=== PATIENT | female | born 1970 | race Caucasian/White ===

== ENCOUNTER 2022-03-26 11:54 | Emergency (ER) | payer MEDICAID, SELFPAY ==
[2022-03-26] VITALS (7 sets, daily range): BP systolic 109–140; BP diastolic 57–75; PULSE 67–80; RESP 16–17; TEMP 36.6; O2SAT 95–99; BMI 51.7
[2022-03-26 12:38] LABS: Chloride 103 mmol/L (98-107); Potassium 3.7 mmoL/L (3.5-5.1); Sodium 140 mmol/L (136-145)
--- NOTE | 2022-03-26 12:39 | CT_ITS ---
FINAL REPORT TECHNIQUE: Thin section axial images were obtained from skull base to vertex without contrast. Coronal reconstruction images were obtained from the axial data. Exam was performed using dose reduction technique. CLINICAL HISTORY: L sided tingling x1 week FINDINGS: There is age-appropriate atrophy. There is no mass effect or midline shift. There is no intracranial hemorrhage. 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 There is no hydrocephalus. Periventricular low density is likely related to changes of chronic small vessel ischemia. The basilar cisterns are preserved. The posterior fossa is without acute abnormality. The soft tissues are without acute abnormality. No acute osseous abnormality is identified. IMPRESSION: No acute intracranial abnormality. Atrophy and changes suggesting chronic small vessel ischemia. Reviewed, Interpreted and Dictated by Alice Zapien MD Transcribed by Maribell Stevens Authenticated and [facility]
[2022-03-26 12:40] LABS: Blood Urea Nitrogen 12 mg/dl (7-17); Creatinine Clearance Estimated 75 mL/min (50-200); Estimated Glomerular Filt Rate 88 ml/min (>60); GFR (African American) 107 ML/MIN (>60)
--- NOTE | 2022-03-26 12:40 | [facility].EDGENADL ---
Discharge Plan Disposition Patient Disposition: Home, Self-Care Condition: Good Chief Complaint: Neuro Symptoms/Deficit Referrals Follow up/Referrals: Debbie Vincent MD [Primary Care Provider] - See instructions Activity Restrictions/Add. Instructions Additional Instructions/Restrictions: Follow-up with your primary care provider, call to make appointment. Clinical Impressions Clinical Impression: Paresthesias Discharge ED Provider: Mekhi Mario General Adult HPI General Chief complaint: Neuro Symptoms/Deficit Stated complaint: left arm tigling and numbness Time Seen by Provider: 03/26/22 12:33 Mode of Arrival: Ambulatory Source of Information: Patient and Spouse Limitations: No Limitations Description of Symptoms (Recalled from ER Triage Doc. by RN): pt comes in with c/o tingiling in left arm and leg. pt states that is began wednesday of last week. sometimes it crosses over to her right arm. pt also reports feelings shaky, and lightheaded. field account director strength, dorsiflexion equal. History of Present Illness HPI narrative: 9-day history of intermittent tingling of her left arm and leg. Also states that sometimes he goes over to her right side as well. States she also feels lightheaded. She says that her was unable to eat for 3 days, so she also did not eat, only drink water but continue to take her hydrochlorothiazide. Because of this she thinks her potassium might have gotten low. She has had hypokalemia in the past and had to be on potassium supplements. Currently she is not on supplements but has been eating potassium rich foods for the past several days including bananas and orange juice, without any improvement. Also states that she is prediabetic. Related Data Allergies Allergy/AdvReac Type Severity Reaction Status Date / Time No Known Allergies Allergy Verified 03/26/22 12:30 [facility] Disclaimer: The information contained in this section may have been updated after the patient was seen, as this information can be updated by other users. Social History Smoking Status: Never smoker ROS Obtained: Yes Systems reviewed as appropriate & no additional complaints except as documented Constitutional Constitutional: Denies fever(s), Denies headache(s) and Denies weakness ENT Ears, Nose, Mouth, and Throat: Denies headache(s), Denies nasal discharge and Denies sore throat Cardiovascular Cardiovascular: Denies chest pain Respiratory Respiratory: Denies shortness of breath and Denies cough Gastrointestinal Gastrointestingal: Denies abdominal pain, constipation, diarrhea or vomiting Genitourinary Female Genitourinary: Denies difficulty voiding, Denies dysuria and Denies flank pain Musculoskeletal Musculoskeletal: Denies numbness and Reports tingling Neurologic Neurologic: Denies headache(s), Denies numbness, Reports tingling and Denies weakness Physical Exam General General appearance: alert and in no apparent distress Head Head exam: atraumatic and normocephalic Eye Eye exam: Present normal appearance and EOMI ENT ENT exam: Present mucous membranes moist Neck Neck exam: Present normal inspection and trachea midline Chest Chest inspection: Present normal inspection and symmetric chest wall rise Respiratory Respiratory exam: Present normal lung sounds bilaterally; Absent respiratory distress Cardiovascular Cardiovascular exam: Present regular rate, normal rhythm and normal heart sounds Abdominal Exam Abdominal exam: Present soft and normal bowel sounds; Absent distention, tenderness, guarding, rebound or rigidity Extremities Exam Extremities exam: Present normal inspection Neurological Exam Neurological exam: Present alert, oriented X3 and CN II-XII intact; Absent motor sensory deficit Psychiatric Psychiatric exam: Present normal affect and normal mood Skin Skin exam: Present warm and dry Medical Decision Making Michael Inquiry Pt receiving controlled substance: No Vital Signs: 03/26/22
[2022-03-26 12:41] LABS: Alanine Aminotransferase 19 U/L (12-78); Albumin/Globulin Ratio 1.3 (1.1-1.8); Alkaline Phosphatase 76 U/L (38-126); Anion Gap 8.7 mEq/L (5-15); Aspartate Amino Transferase 26 U/L (14-36); Bilirubin,Total 0.6 mg/dl (0.2-1.3); Calcium 9.4 mg/dl (8.4-10.2); Carbon Dioxide 32 mmol/L (22.0-30.0); Globulin 3.2 g/dL (1.3-3.2); Glucose 100 mg/dl (74-100); Total Protein,Serum 7.2 g/dl (6.3-8.2)
[2022-03-26 12:48] LABS: Magnesium 2.2 mg/dl (1.6-2.3)
--- NOTE | 2022-03-26 12:57 | ECG_ITS ---
APPROVED REPORT Exam: Resting ECG HR:69 bpm ECG Measurements Heart Rate 69 AXES IA 153 P 44 QRSd 101 QRS 35 QT 398 T 14 QTc 417 Conclusion SINUS RHYTHM NORMAL ECG UNCONFIRMED REPORT Electronically signed by : Shlomo Brooks MD 03/26/2022 19:11:52
[2022-03-26 12:59] LABS: Basophils # 0.1 K/mm3 (0-0.2); Eosinophils # 0.2 K/mm3 (0.0-0.4); Eosinophils % 1.7 % (0.1-12.0); Hematocrit 45.9 % (37.0-47.0); Hemoglobin 14.8 g/dL (12.2-16.2); Lymphocytes # 2.6 K/mm3 (0.7-4.5); Lymphocytes % 25.6 % (10-50); Mean Corpuscular HGB Conc 32.2 g/dL (31.8-35.4); Mean Corpuscular Hemoglobin 30.3 pg (27.0-31.2); Mean Platelet Volume 10.4 fl (7.4-10.4); Monocytes # 0.4 K/mm3 (0.1-1.0); Monocytes % 4.2 % (1.7-9.3); Neutrophils # 6.8 K/mm3 (1.8-7.8); Neutrophils % 67.5 % (37.0-80.0); Platelet Count 298 K/mm3 (142-424); Red Blood Count 4.88 M/mm3 (4.20-5.40); Red Cell Distribution Width 14.4 % (11.5-17.5)
[2022-03-26 13:02] LABS: Troponin I < 0.01 ng/ml (0.00-0.034)
--- NOTE | 2022-03-26 14:05 | PC.NURSE ---
contacted radiology to check on status of ct reading, states it is being read at this time. Updated ER MD at pt
--- NOTE | 2022-03-26 15:44 | PC.NURSE ---
Addendum entered by Freda Head RN 03/26/22 15:46: updated pt at this time Original Note: contacted rad to staff to check on status of ct reading, spoke with madeleine, states the status still says reading. Requested that they call to check on it r/t has been a delay. States she will have one of the rad techs contact ckr
--- NOTE | 2022-03-26 15:54 | PC.NURSE ---
ER given preliminary ct report
== END 2022-03-26 16:20 | disposition home or self-care (01) ==
PROVIDERS: Emergency Provider Emergency Medicine; PCP Family Medicine
DX: R20.2 Paresthesia of skin (principal)
CPT/HCPCS: 70450; 80053; 83735; 84484; 85025; 93005; 99285